=== PATIENT | female | born 1970 | race Caucasian/White ===

== ENCOUNTER 2019-10-05 21:14 | Emergency (ER) | payer BC, MEDICARE ==
[~2019-10-05] VITALS: Ht 154.9 cm; Wt 59.1 kg
[2019-10-05 21:15] VITALS: BP 129/71
[2019-10-05] MEDS ORDERED: GABA-845 PO (21:47)
[2019-10-05] MEDS ORDERED: CYMB60CA3 PO (21:47)
[2019-10-05] MEDS ORDERED: WELLTAB38 PO (21:47)
[2019-10-05] MEDS ORDERED: PERCOCET PO (21:47)
[2019-10-05] MEDS ORDERED: AZITHROMYCIN 250MG TABLET PO ONE (22:45)
[2019-10-05] MEDS ORDERED: AZIT-12 PO (22:45)
== END 2019-10-05 22:49 | disposition home or self-care (01) ==
LOC: M ED 21:14
DX: J02.0 Streptococcal pharyngitis (principal); Z88.0 Allergy status to penicillin; Z88.2 Allergy status to sulfonamides; Z88.8 Allergy status to other drugs, medicaments and biological substances